=== PATIENT | female | born 1960 | race Caucasian/White ===

== ENCOUNTER 2016-11-18 10:57 | Inpatient (IN) | payer BC ==
[2016-11-18] MEDS ORDERED: Sucralfate TAB* 1 GM PO ONE (11:47)
[2016-11-18 12:06] LABS: Hematocrit 42 % (35-47); Hemoglobin 14.2 g/dl (12.0-16.0); Mean Corpuscular HGB Conc 34 g/dl (31-36); Mean Corpuscular Hemoglobin 35 pg (27-31); Mean Corpuscular Volume 102 fL (80-97); Mean Platelet Volume 9 um3 (7.4-10.4); Red Cell Distribution Width 14 % (10.5-15); White Blood Count 4.8 10^3/ul (3.5-10.8)
[2016-11-18 12:07] LABS: Add Diff/Slide Review? Slide Review Added; Comments Flag Yes
[2016-11-18 12:25] LABS: BUN/Creatinine Ratio 14.2 (8-20); C Reactive Protein 20.51 mg/L (< 5.00); Calcium 9.2 mg/dL (8.6-10.3); EGFR African American 56.4 (>60); EGFR Non-African American 43.9 (>60); Globulin 3.9 g/dL (2-4); Potassium 4.4 mmol/L (3.5-5.0); Total Bilirubin 2.1 mg/dL (0.2-1.0); Total Protein 6.9 g/dL (6.4-8.9)
--- NOTE | 2016-11-18 12:54 | RAD ---
INDICATION: Abdominal distention. COMPARISON: Comparison is made with a prior CT of the abdomen and pelvis from July 06, 2009. TECHNIQUE: A CT scan of the abdomen and pelvis was performed without intravenous or oral contrast. Contiguous axial sections were obtained from the lung bases through the symphysis pubis. Images were reconstructed in the coronal and sagittal planes. FINDINGS: The lung bases are clear. No pleural effusion is present. The posterior segment of the right hepatic lobe appears atrophic and the liver has a nodular contour consistent with cirrhosis. The spleen is enlarged measuring 15.8 x 15.8 x 8.3 cm in size and has increased slightly in size from the prior exam. No discrete focal abnormality is seen. The portal vein appears prominent. There are varices in the splenic hilum. These findings are suggestive of portal hypertension. The gallbladder is not well-defined although no calcified gallstones are seen. The pancreas appears to be within normal limits. The adrenal glands and kidneys are normal in size. No renal calculi or hydronephrosis is seen. The aorta is normal in caliber with mild calcific plaque present. No significant enlarged retroperitoneal lymph nodes are seen. The stomach, small and large bowel appear nondistended. The appendix is within normal limits. There is no evidence for diverticulitis or colitis. There is a moderate to large amount of free intraperitoneal fluid. No free intraperitoneal air is seen. No significant focal osseous abnormality is seen. IMPRESSION: 1. MODERATE TO LARGE AMOUNT OF ASCITES. 2. CIRRHOSIS, SPLENOMEGALY AND FINDINGS SUGGESTIVE OF PORTAL HYPERTENSION.
--- NOTE | 2016-11-18 13:58 | ED ---
Anthony Sun Alfonso, scribed for Ricky Burroughs MD on 11/18/16 at 1145 . Shortness of Breath - HPI Summary HPI Summary: This patient is a 56 year old F presenting to [facility] accompanied by female with a chief complaint of SOB since 3 weeks ago. The patient rates the pain 0/10 in severity. Symptoms aggravated by position (sitting up). Symptoms alleviated by nothing. Patient reports abdominal pain (burning and hard), nausea, and loss of appetite. Patient denies bowel symptoms. PMHx of liver cirrhosis. - History of Current Complaint Chief Complaint: EDRespiratoryDistress Time Seen by Provider: 11/18/16 11:29 Hx Obtained From: Patient Onset/Duration: Sudden Onset, Lasting Weeks - 3, Still Present Timing: Constant Current Severity: Moderate Aggrevating Factors: Movement - Position "sitting up" Alleviating Factors: Nothing Associated Signs & Symptoms: Negative - Allergy/Home Medications Allergies/Adverse Reactions: Allergies Allergy/AdvReac Type Severity Reaction Status Date / Time No Known Allergies Allergy Verified 03/07/14 10:19 PMH/Surg Hx/FS Hx/Imm Hx Cardiovascular History: Reports: Hx Hypertension Denies: Hx Pacemaker/ICD GI History: Reports: Other GI Disorders - liver cirrhosis. Sensory History: Denies: Hx Hearing Aid Opthamlomology History: Denies: Hx Legally Blind Psychiatric History: Denies: Hx Panic Disorder - Surgical History Surgery Procedure, Year, and Place: RT KNEE MENISCUS, CERVICAL DYSPLASIA SURGERYS,LIVER BX Infectious Disease History: Denies: Traveled Outside the [place] in Last 30 Days - Family History Known Family History: Positive: Cardiac Disease, Diabetes, Other - Cancer brain and breast. - Social History Alcohol Use: None Substance Use Type: Reports: None Hx Tobacco Use: Yes Smoking Status (MU): Former Smoker Length of Time of Smoking/Using Tobacco: < 1/2 ppd Review of Systems Positive: Shortness Of Breath Positive: Abdominal Pain, Nausea, Other - loss of appetite; negative bowel sx. All Other Systems Reviewed And Are Negative: Yes Physical Exam Triage Information Reviewed: Yes Vital Signs On Initial Exam: Initial Vitals Temp Pulse Resp BP Pulse Ox 98.7 F 95 24 152/74 95 11/18/16 11:07 11/18/16 11:07 11/18/16 11:07 11/18/16 11:07 11/18/16 11:07 Vital Signs Reviewed: Yes Appearance: Positive: Well-Appearing, No Pain Distress, Obese Skin: Positive: Warm, Skin Color Reflects Adequate Perfusion, Dry Head/Face: Positive: Normal Head/Face Inspection Eyes: Positive: Normal ENT: Positive: Normal ENT inspection Neck: Positive: Supple, Nontender Respiratory/Lung Sounds: Positive: Clear to Auscultation, Breath Sounds Present Cardiovascular: Positive: RRR Abdomen Description: Positive: Soft, Other: - Epigastrium tenderness Bowel Sounds: Positive: Present Musculoskeletal: Positive: Normal Neurological: Positive: Normal, Sensory/Motor Intact, Alert, Oriented to Person Place, Time Psychiatric: Positive: Affect/Mood Appropriate Diagnostics - Vital Signs Vital Signs Temp Pulse Resp BP Pulse Ox 11/18/16 11:07 98.7 F 95 24 152/74 95 - Laboratory Lab Results: Lab Results 11/18/16 11/18/16 11/18/16 Range/Units 11:52 11:52 11:52 WBC 4.8 (3.5-10.8) 10^3/ul RBC 4.10 (4.0-5.4) 10^6/ul Hgb 14.2 (12.0-16.0) g/dl Hct 42 (35-47) % MCV 102 H (80-97) fL MCH 35 H (27-31) pg MCHC 34 (31-36) g/dl RDW 14 (10.5-15) % Plt Count 73 L (150-450) 10^3/ul MPV 9 (7.4-10.4) um3 Neut % (Auto) 59.5 (38-83) % Lymph % (Auto) 18.4 L (25-47) % [place] % (Auto) 16.5 H (1-9) % Eos % (Auto) 4.5 (0-6) % Baso % (Auto) 1.1 (0-2) % Absolute Neuts (auto) 2.9 (1.5-7.7) 10^3/ul Absolute Lymphs (auto) 0.9 L (1.0-4.8) 10^3/ul Absolute Monos (auto) 0.8 (0-0.8) 10^3/ul Absolute Eos (auto) 0.2 (0-0.6) 10^3/ul Absolute Basos (auto) 0.1 (0-0.2) 10^3/ul Absolute Nucleated RBC 0 10^3/ul Nucleated RBC % 0.1 INR (Anticoag Therapy) (0.89-1.11) Sodium 133 (133-145) mmol/L Potassium 4.4 (3.5-5.0) mmol/L Chloride 105 (101-111) mmol/L Carbon Dioxide 23 (22-32) mmol/L Anion Gap 5 (2-11) mmol/L BUN 18 (6-24) mg/dL Creatinine 1.27 H (0.51-0.95) mg/dL Est GFR ( Amer) 56.4 (>60) Est GFR (Non-Af Amer) 43.9 (>60) BUN/Creatinine Ratio 14.2 (8-20) Glucose 133 H (70-100) mg/dL Lactic Acid (0.5-2.0) mmol/L Calcium 9.2 (8.6-10.3) mg/dL Total Bilirubin 2.10 H (0.2-1.0) mg/dL AST 35 (13-39) U/L ALT 19 (7-52) U/L Alkaline Phosphatase 134 H (34-104) U/L Ammonia 167 H (16-53) mol/L C-Reactive Protein 20.51 H (< 5.00) mg/L Total Protein 6.9 (6.4-8.9) g/dL Albumin 3.0 L (3.2-5.2) g/dL Globulin 3.9 (2-4) g/dL Albumin/Globulin Ratio 0.8 L (1-3) Lipase 62 (11.0-82.0) U/L 11/18/16 11/18/16 Range/Units 11:52 11:52 WBC (3.5-10.8) 10^3/ul RBC (4.0-5.4) 10^6/ul Hgb (12.0-16.0) g/dl Hct (35-47) % MCV (80-97) fL MCH (27-31) pg MCHC (31-36) g/dl RDW (10.5-15) % Plt Count (150-450) 10^3/ul MPV (7.4-10.4) um3 Neut % (Auto) (38-83) % Lymph % (Auto) (25-47) % [place] % (Auto) (1-9) % Eos % (Auto) (0-6) % Baso % (Auto) (0-2) % Absolute Neuts (auto) (1.5-7.7) 10^3/ul Absolute Lymphs (auto) (1.0-4.8) 10^3/ul Absolute Monos (auto) (0-0.8) 10^3/ul Absolute Eos (auto) (0-0.6) 10^3/ul Absolute Basos (auto) (0-0.2) 10^3/ul Absolute Nucleated RBC 10^3/ul Nucleated RBC % INR (Anticoag Therapy) 1.33 H (0.89-1.11) Sodium (133-145) mmol/L Potassium (3.5-5.0) mmol/L Chloride (101-111) mmol/L Carbon Dioxide (22-32) mmol/L Anion Gap (2-11) mmol/L BUN (6-24) mg/dL Creatinine (0.51-0.95) mg/dL Est GFR ( Amer) (>60) Est GFR (Non-Af Amer) (>60) BUN/Creatinine Ratio (8-20) Glucose (70-100) mg/dL Lactic Acid 2.0 (0.5-2.0) mmol/L Calcium (8.6-10.3) mg/dL Total Bilirubin (0.2-1.0) mg/dL AST (13-39) U/L ALT (7-52) U/L Alkaline Phosphatase (34-104) U/L Ammonia (16-53) mol/L C-Reactive Protein (< 5.00) mg/L Total Protein (6.4-8.9) g/dL Albumin (3.2-5.2) g/dL Globulin (2-4) g/dL Albumin/Globulin Ratio (1-3) Lipase (11.0-82.0) U/L Result Diagrams: 11/18/16 11:52 11/18/16 11:52 Lab Statement: Any lab studies that have been ordered have been reviewed, and results considered in the medical decision making process. - CT A/P CT Interpretation Completed By: Radiologist - 1. MODERATE TO LARGE AMOUNT OF ASCITES. 2. CIRRHOSIS, SPLENOMEGALY AND FINDINGS SUGGESTIVE OF PORTAL HYPERTENSION. ED physician has reviewed this radiology report and agrees. Course/Dx - Course Course Of Treatment: Ms. Cheng presented with massive ascites which ahs been giving her SOB and epigastric sukhwinder for the last 3 weeks. I doubt that she has SBP but it is possible. She is being admitted to the hospitalists for further W /U. - Diagnoses Provider Diagnoses: Ascites, Epigastric abdominal pain - Physician Notifications Discussed Care of Patient With: Skyla Davis Time Discussed With Above Provider: 12:42 Instructed by Provider To: Other - Consulted Dr. Davis (hospitalist) who agrees to admit. Discharge - Discharge Plan Condition: Stable Disposition: ADMITTED TO [facility] The documentation as recorded by the Anthony rodrigues Alfonso accurately reflects the service I personally performed and the decisions made by me, Ricky Burroughs MD.
[2016-11-18] MEDS ORDERED: Ondansetron INJ* 2 MG/ML VIAL IV PRN (14:14)
[2016-11-18 14:28] LABS: Urine Bacteria Absent (Absent); Urine Bilirubin Negative (Negative); Urine Glucose Negative (Negative); Urine Nitrite Negative (Negative)
[2016-11-18] MEDS: Lactulose* 15 ML UDC PO SCH ×2 (15:49→21:11)
--- NOTE | 2016-11-18 15:50 | HP ---
CC: Dr. Rodriguez; * HISTORY AND PHYSICAL: DATE OF ADMISSION: 11/18/16 PRIMARY CARE PROVIDER: Dr. Rodriguez from [place]. ATTENDING PHYSICIAN WHILE IN THE HOSPITAL: Skyla Patel MD * (report dictated by Erik Bajwa NP). CHIEF COMPLAINT: 1. Shortness of breath. 2. Abdominal discomfort and epigastric discomfort. HISTORY OF PRESENT ILLNESS: Mrs. Cheng is a 56-year-old female patient with a documented history of cirrhosis secondary to MARIA, history of thrombocytopenia, uterine cancer, and history of AUNDREA compliant with CPAP. She comes into the ER today stating that over the last 3 weeks, she has had progressive worsening abdominal distention. She says she feels like she is 9 months . She says she has been taking her diuretics. She has had issues with ascites in the past, although never required paracentesis she says. She denies having any fevers or chills. She says that it hurts. She is having epigastric discomfort right now and it really is worse when she tries to take a deep breath and also she is like it is hard to take a deep breath because it causes discomfort, particularly in her stomach. She says that she has not had any fevers or chills. There has been no vomiting or diarrhea. She says she just feels uncomfortable because she feels like she is carrying 3 babies around, that is what she said to me. She denied having any chest discomfort, no abdominal pain at rest. It just hurts with movement. She denies having any fevers, chills, or any vomiting. She came into the ER, was evaluated. There is concern because she had a significant amount of ascites and the fact that she was feeling short of breath particularly with exertion is what her main complaint is. Because of this, we were asked to evaluate for admission. PAST MEDICAL HISTORY: Significant for: 1. Cirrhosis. 2. MARIA. 3. Thrombocytopenia. 4. Uterine cancer. 5. AUNDREA complaint with CPAP. PAST SURGICAL HISTORY: She has had: 1. . 2. Adenoidectomy. 3. She has had polyp with the vocal cords removed. HOME MEDICATIONS: According to her recall include: 1. Prevacid 30 mg daily. 2. Lasix 20 mg p.o. b.i.d. 3. Aldactone 25 mg p.o. daily. ALLERGIES TO MEDICATIONS: Include no known drug allergies. FAMILY HISTORY: Mother had a history of heart disease. Father had a history of CHF. SOCIAL HISTORY: She is about half a pack a day smoker. She has been doing this since she was the age of 12, occasionally drinks alcohol. Surrogate decision maker is her partner, Connie. REVIEW OF SYSTEMS: There is no documented fever. She denied a significant weight change to me, but she said she has been unable to weigh herself because she gets too short of breath when she tries to walk to the scale. She denies having any abdominal discomfort. There was no nausea or vomiting. There was no dysuria, no frequency, no loss of consciousness. No seizure. No pruritus. No skin ulcerations. Review of 14 systems completed, all others negative. PHYSICAL EXAMINATION GENERAL: At this time, Mrs. Cheng is a 56-year-old female patient. She is morbidly obese. She is sitting in the ER stretcher. She does not appear to be in any acute respiratory distress. VITAL SIGNS: Reveals blood pressure 117/58, pulse 95, respirations 18, O2 sat 95% on room air, temperature 98.7. HEENT: Head is atraumatic and normocephalic. Eyes: EOMs are intact. Sclerae anicteric, not pale. Throat: Oral mucosa appears to be moist. No oropharyngeal erythema. NECK: Supple. LUNGS: Clear to auscultation bilaterally. No wheezes, rales, or rhonchi. HEART: Sounds S1, S2. Regular rate and rhythm. No murmurs, rubs, or gallops. ABDOMEN: On percussion was dull. There was no tenderness. Bowel sounds were present. She did have what appeared to be fluid wave, but no focal tenderness was noted. EXTREMITIES: Pulses were 2+ throughout. She is able to move all 4 extremities with 5/5 strength. NEUROLOGICAL: She is awake, alert, and oriented x3. No gross focal deficits. SKIN: Intact. LABORATORY DATA/DIAGNOSTIC STUDIES: Revealed WBC 4.8, RBC of 4.10, hemoglobin 14.2, hematocrit of 42, and platelet count of 73,000. INR 1.33. Sodium 133, potassium 4.4, chloride 105, bicarb 23, BUN 18, creatinine 1.27, her baseline creatinine is 0.8. Glucose 133, lactic 2, calcium 9.2, total bili 2.1. AST 35 , ALT 19, alk phos 134. Her ammonia was 167. Albumin was 3.0. She had an abdominopelvis CT scan obtained today, which showed, impression: [id number] amount of ascites, cirrhosis, splenomegaly, and findings suggestive of portal hypertension. Old medical records were reviewed. ASSESSMENT AND PLAN: Mrs. Cheng is a 56-year-old female patient coming into the ER today with complaints of shortness of breath particularly with exertion and abdominal discomfort. She will be admitted under observation status for: 1. Cirrhosis with ascites. At this point, I suspect this is probably why she is feeling dyspnea on exertion and why she is having difficulty with exertion. She has a significant amount of ascites. My plan is to set up a paracentesis, send this off for cultures and cell count. I do not think she is actively infected. If she spikes a fever, has worsening abdominal pain or gely a white count, then I will have a little threshold to put her on antibiotics, but I am going to hold at this point though, she is stable and we will continue to follow. I think once we do a paracentesis and drain some fluid off, she may feel significantly better and will continue to follow. I will go ahead and increase her Lasix to IV 40 b.i.d., obviously keeping a close eye on the renal function and we will also continue her spironolactone. 2. History of obstructive sleep apnea. We will put her on CPAP. 3. Nonalcoholic steatohepatitis. Follow with her primary roll setter. 4. Thrombocytopenia. We will monitor this. 5. DVT prophylaxis. Because of the thrombocytopenia, the proposed procedure and the fact that she does have a slightly elevated INR, I am just going to put her on SCDs. I am going to hold on heparin subcu. 6. Code status. Full code. 7. Fluids, electrolytes, and nutrition. She can have a heart healthy diet. 8. Elevated ammonia. She is not encephalopathic at this point, but I will put her on lactulose 15 mL p.o. b.i.d. and repeat the level in the morning. TIME SPENT: Time spent on the admission was approximately 60 minutes, greater than half the time spent [id number] with the patient obtaining my history and physical, the other half the time was spent going over the plan of care with the patient and implementing plan of care. I did discuss the plan of care with my attending, Dr. Patel, she is in agreement. ERIK BAJWA, RAFAEL [id number]/CPS #: [id number] MARIE
[2016-11-18] MEDS: Furosemide IV* 10 MG/ML VIAL (40 MG) IV SLOW PU SCH (17:05)
[2016-11-18] MEDS ORDERED: Acetaminophen TAB* 325 MG PO PRN (21:24)
[2016-11-18] MEDS ORDERED: oxyCODONE TAB* 5 MG TAB PO PRN (21:24)
[2016-11-19 05:28] LABS: Hematocrit 38 % (35-47); Hemoglobin 12.8 g/dl (12.0-16.0); Mean Corpuscular HGB Conc 34 g/dl (31-36); Mean Corpuscular Hemoglobin 35 pg (27-31); Mean Corpuscular Volume 102 fL (80-97); Mean Platelet Volume 8 um3 (7.4-10.4); Red Blood Count 3.66 10^6/ul (4.0-5.4); Red Cell Distribution Width 14 % (10.5-15); White Blood Count 3.7 10^3/ul (3.5-10.8)
[2016-11-19 05:31] LABS: Add Diff/Slide Review? Slide Review Added; Comments Flag Yes
[2016-11-19] MEDS: Omeprazole CAP* 20 MG PO SCH (06:02)
[2016-11-19 06:03] LABS: Albumin 2.5 g/dL (3.2-5.2); BUN/Creatinine Ratio 14.1 (8-20); Calcium 8.8 mg/dL (8.6-10.3); EGFR African American 55.9 (>60); EGFR Non-African American 43.5 (>60); Globulin 3.3 g/dL (2-4); Potassium 4.1 mmol/L (3.5-5.0); Total Bilirubin 3.3 mg/dL (0.2-1.0); Total Protein 5.8 g/dL (6.4-8.9)
[2016-11-19 08:29] LABS: Direct Bilirubin 0.9 mg/dL (0.03-0.18); Indirect Bilirubin 2.4 mg/dL (0.3-1.0)
[2016-11-19] MEDS ORDERED: Furosemide IV* 10 MG/ML VIAL (40 MG) IV SCH (09:00)
[2016-11-19] MEDS ORDERED: Lidocaine 1% INJ* 10 MG/ML 30 ML SDV ONE (10:12)
[2016-11-19] MEDS: Furosemide IV* 10 MG/ML VIAL (40 MG) IV SLOW PU SCH ×2 (11:44→20:15)
[2016-11-19] MEDS: Lactulose* 15 ML UDC PO SCH ×2 (11:44→20:03)
[2016-11-19] MEDS: Spironolactone TAB* 25 MG PO SCH (11:44)
--- NOTE | 2016-11-19 12:40 | CONS ---
CC: Dr. Rodriguez; [facility]; Dr. Tiffanie Anderson * SURGICAL CONSULTATION AND PROCEDURE NOTE: DATE OF CONSULT/PROCEDURE: 11/19/16 My service was contacted by the hospitalist service to evaluate Ms. Cheng, a 56- year-old female known to me from previous visits for evaluation of possible paracentesis. Patient is morbidly obese and I have seen her in our bariatric offices. She has got a history of cirrhosis and MARIA as well as obstructive sleep apnea and super morbid obesity. Patient presented to the hospital yesterday with shortness of breath and some abdominal discomfort. Workup in the emergency room included labs and a CT scan. A CAT scan showed large abdominal ascites and the patient was admitted for respiratory therapy and for surgical evaluation. Patient states that she is uncomfortable if she moves around; as long as she stays still she is okay. Some shortness of breath, difficulty getting comfortable. She does suffer with chronic pain. Past medical history and past surgical history reviewed as well as medications. REVIEW OF SYSTEMS: No fevers, no chills. Hospitalization as described above at this time. Shortness of breath as described above. Abdominal discomfort, but no change in bowel habits. Patient feels distended and has never felt this way before. She follows with Dr. Tiffanie Anderson regarding her MARIA. PHYSICAL EXAMINATION: She is afebrile. SBP in the 80s to 100s with MAP in the 60s, O2 sat 91% on room air, respirations 16. Alert and oriented x3 in minimal distress, not using accessory muscles. Lungs: Clear, but somewhat shallow breathing. Abdomen: Obese, distended, minimally tender on deep palpation, atympany. Extremities with some edema. LABORATORY DATA: Labs reviewed, which include a platelet count of 54, chemistry panel with a total bilirubin of 3.3. CT scan reviewed. IMPRESSION: A 56-year-old morbidly obese patient with a MELD score of 16 and nonalcoholic steatohepatitis, now with symptomatic large volume ascites. PLAN: Paracentesis with fluid sent for culture and cytology. PROCEDURE: After obtaining informed consent from the patient and going over the risks, benefits and alternatives as well as possible complications, patient agreed and she was marked. A time-out was performed. Ultrasound probe placed over the right upper quadrant and target incision site made. Due to the patient's body habitus, we did not tunnel this catheter given the fact that she had a 5-cm abdominal wall when measured utilizing CT scanning. The area was injected with lidocaine and a 8-Bengali catheter inserted. Approximately 5 L were taken off. This was cloudy, non-foul smelling yellowish fluid. A portion was sent for cytology and microbiology. When the fluid stopped draining after repositioning of the patient, we took the catheter out and placed a dressing over the site. The patient tolerated the procedure well. Followup cytology and microbiology. Hepatology consultation. [id number]/[facility] #: [id number] MARIE
--- NOTE | 2016-11-19 15:27 | RAD ---
HISTORY: Shortness of breath COMPARISONS: CT dated March 28, 2015 VIEWS: 1: frontal portable view of the chest at 3:10 PM FINDINGS: LINES AND TUBES: None. CARDIOMEDIASTINAL SILHOUETTE: The cardiomediastinal silhouette is normal for portable technique. PLEURA: The costophrenic angles are sharp. No pleural abnormalities are noted. LUNG PARENCHYMA: There is mild diffuse reticular pattern of opacification. ABDOMEN: The upper abdomen is clear. There is no subphrenic gas. BONES AND SOFT TISSUES: No bone or soft tissue abnormalities are noted. IMPRESSION: MILD DIFFUSE INTERSTITIAL OPACIFICATION. THE DIFFERENTIAL INCLUDES MILD PULMONARY INTERSTITIAL EDEMA
[2016-11-19 15:30] LABS: Body Fluid WBC 388 /mcL
[2016-11-19 15:44] LABS: Body Fluid Appearance Cloudy; Body Fluid Total Cells Counted 100
--- NOTE | 2016-11-19 19:15 | PN ---
Subjective Date of Service: 11/19/16 Interval History: Patient had a paracentesis with drainage of 5 liters of fluid. Patient states that this moderately improved her SOB and abdominal pain, but it is still present. Patient denies any other new complaints or pains. Patient asymptomatically hypotensive before paracentesis, so lasix and spironolactone were held for 3 hours and then given when normotensive. Family History: Unchanged from Admission Social History: Unchanged from Admission Past Medical History: Unchanged from Admission Objective Active Medications: Acetaminophen (Tylenol Tab*) 650 mg PO Q8H PRN PRN Reason: PAIN Furosemide (Lasix Iv*) 40 mg IV SLOW PU 0800,1700 FOR[facility] Last Admin: 11/19/16 11:44 Dose: 40 mg Lactulose (Lactulose*) 15 ml PO BID [facility] Last Admin: 11/19/16 11:44 Dose: 15 ml Omeprazole (Prilosec Cap*) 20 mg PO 0600 [facility] Last Admin: 11/19/16 06:02 Dose: 20 mg Ondansetron HCl (Zofran Inj*) 4 mg IV Q6H PRN PRN Reason: NAUSEA Oxycodone HCl (Roxycodone Tab*) 5 mg PO Q8H PRN PRN Reason: PAIN Last Admin: 11/18/16 22:16 Dose: 5 mg Spironolactone (Aldactone Tab*) 25 mg PO DAILY [facility] Last Admin: 11/19/16 11:44 Dose: 25 mg Vital Signs 11/18/16 11/18/16 11/18/16 20:00 20:27 22:00 Temperature 98.5 F 98.6 F Pulse Rate 84 87 Respiratory 18 16 18 Rate Blood Pressure 108/76 102/65 (mmHg) O2 Sat by Pulse 96 95 Oximetry 11/18/16 11/18/16 11/19/16 22:16 22:45 00:00 Temperature 98.6 F Pulse Rate 87 Respiratory 18 Rate Blood Pressure 102/65 (mmHg) O2 Sat by Pulse 95 95 Oximetry 11/19/16 11/19/16 11/19/16 02:00 03:32 04:16 Temperature 98 F 98.0 F Pulse Rate 85 85 Respiratory 20 20 18 Rate Blood Pressure 89/55 89/55 (mmHg) O2 Sat by Pulse 93 93 Oximetry 11/19/16 11/19/16 11/19/16 06:00 06:48 08:00 Temperature 97.9 F 97.9 F Pulse Rate 84 84 Respiratory 16 16 Rate Blood Pressure 92/57 92/57 (mmHg) O2 Sat by Pulse 91 91 96 Oximetry 11/19/16 11/19/16 11:41 15:21 Temperature 98.0 F 98.0 F Pulse Rate 83 83 Respiratory 17 24 Rate Blood Pressure 111/70 119/57 (mmHg) O2 Sat by Pulse 96 95 Oximetry Oxygen Devices in Use Now: None Appearance: Patient is a 56yo morbidly obese female who appears stated age sitting in hospital bed in NAD. Eyes: No Scleral Icterus, PERRLA Ears/Nose/Mouth/Throat: NL Teeth, Lips, Gums, Clear Oropharnyx, Mucous Membranes Moist Neck: NL Appearance and Movements; NL JVP, Trachea Midline Respiratory: Symmetrical Chest Expansion and Respiratory Effort, Clear to Auscultation Cardiovascular: NL Sounds; No Murmurs; No JVD, RRR, - - 1+ edema in bilateral lower extremities. Abdominal: - - Abdomen tensely distended and tender to palpation worst in epigastric area without involuntary guarding. BS present and normoactive in all 4 quadrants. Lymphatic: No Cervical Adenopathy Skin: No Rash or Ulcers Neurological: Alert and Oriented x 3, NL Sensation, NL Muscle Strength and Tone Nutrition: Taking PO's Result Diagrams: 11/19/16 05:08 11/19/16 05:04 Additional Lab and Data: Lab Results 11/18/16 11/18/16 11/18/16 Range/Units 11:52 11:52 11:52 WBC 4.8 (3.5-10.8) 10^3/ul RBC 4.10 (4.0-5.4) 10^6/ul Hgb 14.2 (12.0-16.0) g/dl Hct 42 (35-47) % MCV 102 H (80-97) fL MCH 35 H (27-31) pg MCHC 34 (31-36) g/dl RDW 14 (10.5-15) % Plt Count 73 L (150-450) 10^3/ul MPV 9 (7.4-10.4) um3 Neut % (Auto) 59.5 (38-83) % Lymph % (Auto) 18.4 L (25-47) % Am[place] % (Auto) 16.5 H (1-9) % Eos % (Auto) 4.5 (0-6) % Baso % (Auto) 1.1 (0-2) % Absolute Neuts (auto) 2.9 (1.5-7.7) 10^3/ul Absolute Lymphs (auto) 0.9 L (1.0-4.8) 10^3/ul Absolute Monos (auto) 0.8 (0-0.8) 10^3/ul Absolute Eos (auto) 0.2 (0-0.6) 10^3/ul Absolute Basos (auto) 0.1 (0-0.2) 10^3/ul Absolute Nucleated RBC 0 10^3/ul Nucleated RBC % 0.1 INR (Anticoag Therapy) (0.89-1.11) Sodium 133 (133-145) mmol/L Potassium 4.4 (3.5-5.0) mmol/L Chloride 105 (101-111) mmol/L Carbon Dioxide 23 (22-32) mmol/L Anion Gap 5 (2-11) mmol/L BUN 18 (6-24) mg/dL Creatinine 1.27 H (0.51-0.95) mg/dL Est GFR ( Amer) 56.4 (>60) Est GFR (Non-Af Amer) 43.9 (>60) BUN/Creatinine Ratio 14.2 (8-20) Glucose 133 H (70-100) mg/dL Lactic Acid (0.5-2.0) mmol/L Calcium 9.2 (8.6-10.3) mg/dL Total Bilirubin 2.10 H (0.2-1.0) mg/dL AST 35 (13-39) U/L ALT 19 (7-52) U/L Alkaline Phosphatase 134 H (34-104) U/L Ammonia 167 H (16-53) mol/L C-Reactive Protein 20.51 H (< 5.00) mg/L Total Protein 6.9 (6.4-8.9) g/dL Albumin 3.0 L (3.2-5.2) g/dL Globulin 3.9 (2-4) g/dL Albumin/Globulin Ratio 0.8 L (1-3) Lipase 62 (11.0-82.0) U/L 11/18/16 11/18/16 Range/Units 11:52 11:52 WBC (3.5-10.8) 10^3/ul RBC (4.0-5.4) 10^6/ul Hgb (12.0-16.0) g/dl Hct (35-47) % MCV (80-97) fL MCH (27-31) pg MCHC (31-36) g/dl RDW (10.5-15) % Plt Count (150-450) 10^3/ul MPV (7.4-10.4) um3 Neut % (Auto) (38-83) % Lymph % (Auto) (25-47) % Amite % (Auto) (1-9) % Eos % (Auto) (0-6) % Baso % (Auto) (0-2) % Absolute Neuts (auto) (1.5-7.7) 10^3/ul Absolute Lymphs (auto) (1.0-4.8) 10^3/ul Absolute Monos (auto) (0-0.8) 10^3/ul Absolute Eos (auto) (0-0.6) 10^3/ul Absolute Basos (auto) (0-0.2) 10^3/ul Absolute Nucleated RBC 10^3/ul Nucleated RBC % INR (Anticoag Therapy) 1.33 H (0.89-1.11) Sodium (133-145) mmol/L Potassium (3.5-5.0) mmol/L Chloride (101-111) mmol/L Carbon Dioxide (22-32) mmol/L Anion Gap (2-11) mmol/L BUN (6-24) mg/dL Creatinine (0.51-0.95) mg/dL Est GFR ( Amer) (>60) Est GFR (Non-Af Amer) (>60) BUN/Creatinine Ratio (8-20) Glucose (70-100) mg/dL Lactic Acid 2.0 (0.5-2.0) mmol/L Calcium (8.6-10.3) mg/dL Total Bilirubin (0.2-1.0) mg/dL AST (13-39) U/L ALT (7-52) U/L Alkaline Phosphatase (34-104) U/L Ammonia (16-53) mol/L C-Reactive Protein (< 5.00) mg/L Total Protein (6.4-8.9) g/dL Albumin (3.2-5.2) g/dL Globulin (2-4) g/dL Albumin/Globulin Ratio (1-3) Lipase (11.0-82.0) U/L 11/18/16 11/18/16 11/18/16 11:52 11:52 11:52 WBC 4.8 RBC 4.10 Hgb 14.2 Hct 42 MCV 102 H MCH 35 H MCHC 34 RDW 14 Plt Count 73 L MPV 9 Neut % (Auto) 59.5 Lymph % (Auto) 18.4 L Amite % (Auto) 16.5 H Eos % (Auto) 4.5 Baso % (Auto) 1.1 Absolute Neuts (auto) 2.9 Absolute Lymphs (auto) 0.9 L Absolute Monos (auto) 0.8 Absolute Eos (auto) 0.2 Absolute Basos (auto) 0.1 Absolute Nucleated RBC 0 Nucleated RBC % 0.1 INR (Anticoag Therapy) Sodium 133 Potassium 4.4 Chloride 105 Carbon Dioxide 23 Anion Gap 5 BUN 18 Creatinine 1.27 H Est GFR ( Amer) 56.4 Est GFR (Non-Af Amer) 43.9 BUN/Creatinine Ratio 14.2 Glucose 133 H Lactic Acid Calcium 9.2 Total Bilirubin 2.10 H Direct Bilirubin Indirect Bilirubin AST 35 ALT 19 Alkaline Phosphatase 134 H Ammonia 167 H C-Reactive Protein 20.51 H Total Protein 6.9 Albumin 3.0 L Globulin 3.9 Albumin/Globulin Ratio 0.8 L Lipase 62 Urine Color Urine Appearance Urine pH Ur Specific [place] Urine Protein Urine Ketones Urine Blood Urine Nitrate Urine Bilirubin Urine Urobilinogen Ur Leukocyte Esterase Urine WBC (Auto) Urine RBC (Auto) Ur Squamous Epith Cells Urine Bacteria Urine Glucose Urine Ascorbic Acid Fluid Source Fluid Volume Fluid Color Fluid Appearance Fluid WBC Fluid RBC Fluid Tot Cell Count Fluid Neutrophils Fluid Lymphocytes Fluid Monocytes Fluid Cell Count Rvw By Fluid Comment 11/18/16 11/18/16 11/18/16 11:52 11:52 13:05 WBC RBC Hgb Hct MCV MCH MCHC RDW Plt Count MPV Neut % (Auto) Lymph % (Auto) Amite % (Auto) Eos % (Auto) Baso % (Auto) Absolute Neuts (auto) Absolute Lymphs (auto) Absolute Monos (auto) Absolute Eos (auto) Absolute Basos (auto) Absolute Nucleated RBC Nucleated RBC % INR (Anticoag Therapy) 1.33 H Sodium Potassium Chloride Carbon Dioxide Anion Gap BUN Creatinine Est GFR ( Amer) Est GFR (Non-Af Amer) BUN/Creatinine Ratio Glucose Lactic Acid 2.0 Calcium Total Bilirubin Direct Bilirubin Indirect Bilirubin AST ALT Alkaline Phosphatase Ammonia C-Reactive Protein Total Protein Albumin Globulin Albumin/Globulin Ratio Lipase Urine Color Radha Urine Appearance Clear Urine pH 6.0 Ur Specific [place] 1.029 Urine Protein Negative Urine Ketones Trace H Urine Blood Negative Urine Nitrate Negative Urine Bilirubin Negative Urine Urobilinogen Negative Ur Leukocyte Esterase Trace H Urine WBC (Auto) Trace(0-5/hpf) Urine RBC (Auto) Absent Ur Squamous Epith Cells Present H Urine Bacteria Absent Urine Glucose Negative Urine Ascorbic Acid * H Fluid Source Fluid Volume Fluid Color Fluid Appearance Fluid WBC Fluid RBC Fluid Tot Cell Count Fluid Neutrophils Fluid Lymphocytes Fluid Monocytes Fluid Cell Count Rvw By Fluid Comment 11/19/16 11/19/16 11/19/16 05:04 05:08 05:08 WBC 3.7 RBC 3.66 L Hgb 12.8 Hct 38 MCV 102 H MCH 35 H MCHC 34 RDW 14 Plt Count 54 L MPV 8 Neut % (Auto) 52.9 Lymph % (Auto) 21.6 L Amite % (Auto) 19.0 H Eos % (Auto) 5.8 Baso % (Auto) 0.7 Absolute Neuts (auto) 1.9 Absolute Lymphs (auto) 0.8 L Absolute Monos (auto) 0.7 Absolute Eos (auto) 0.2 Absolute Basos (auto) 0 Absolute Nucleated RBC 0.01 Nucleated RBC % 0.2 INR (Anticoag Therapy) Sodium 136 Potassium 4.1 Chloride 107 Carbon Dioxide 24 Anion Gap 5 BUN 18 Creatinine 1.28 H Est GFR ( Amer) 55.9 Est GFR (Non-Af Amer) 43.5 BUN/Creatinine Ratio 14.1 Glucose 104 H Lactic Acid Calcium 8.8 Total Bilirubin 3.30 H Direct Bilirubin 0.90 H Indirect Bilirubin 2.4 H AST 28 ALT 15 Alkaline Phosphatase 88 Ammonia 80 H C-Reactive Protein Total Protein 5.8 L Albumin 2.5 L Globulin 3.3 Albumin/Globulin Ratio 0.8 L Lipase Urine Color Urine Appearance Urine pH Ur Specific [place] Urine Protein Urine Ketones Urine Blood Urine Nitrate Urine Bilirubin Urine Urobilinogen Ur Leukocyte Esterase Urine WBC (Auto) Urine RBC (Auto) Ur Squamous Epith Cells Urine Bacteria Urine Glucose Urine Ascorbic Acid Fluid Source Fluid Volume Fluid Color Fluid Appearance Fluid WBC Fluid RBC Fluid Tot Cell Count Fluid Neutrophils Fluid Lymphocytes Fluid Monocytes Fluid Cell Count Rvw By Fluid Comment 11/19/16 10:23 WBC RBC Hgb Hct MCV MCH MCHC RDW Plt Count MPV Neut % (Auto) Lymph % (Auto) Amite % (Auto) Eos % (Auto) Baso % (Auto) Absolute Neuts (auto) Absolute Lymphs (auto) Absolute Monos (auto) Absolute Eos (auto) Absolute Basos (auto) Absolute Nucleated RBC Nucleated RBC % INR (Anticoag Therapy) Sodium Potassium Chloride Carbon Dioxide Anion Gap BUN Creatinine Est GFR ( Amer) Est GFR (Non-Af Amer) BUN/Creatinine Ratio Glucose Lactic Acid Calcium Total Bilirubin Direct Bilirubin Indirect Bilirubin AST ALT Alkaline Phosphatase Ammonia C-Reactive Protein Total Protein Albumin Globulin Albumin/Globulin Ratio Lipase Urine Color Urine Appearance Urine pH Ur Specific [place] Urine Protein Urine Ketones Urine Blood Urine Nitrate Urine Bilirubin Urine Urobilinogen Ur Leukocyte Esterase Urine WBC (Auto) Urine RBC (Auto) Ur Squamous Epith Cells Urine Bacteria Urine Glucose Urine Ascorbic Acid Fluid Source Peritonial fluid Fluid Volume 11 Fluid Color Yellow Fluid Appearance Cloudy Fluid WBC 388 Fluid RBC 2325 Fluid Tot Cell Count 100 Fluid Neutrophils 16 Fluid Lymphocytes 33 Fluid Monocytes 51 Fluid Cell Count Rvw By Fluid Comment Microbiology and Other Data: Microbiology 11/19/16 10:17 Gram Stain - Final Body Fluid - Peritoneal 11/18/16 13:05 Urine Culture - Final Urine Assess/Plan/Problems-Billing Assessment: Patient is a 56yo female with a PMH significant for MARIA with cirrhosis, ascites , AUNDREA and thrombocytopenia who presents with SOB and abdominal pain and tense ascites. Moderate improvement after paracentesis, but persisting SOB. - Patient Problems (1) Liver cirrhosis secondary to MARIA (nonalcoholic steatohepatitis) Current Visit: Yes Status: Acute Code(s): K75.81 - NONALCOHOLIC STEATOHEPATITIS (MARIA); K74.60 - UNSPECIFIED CIRRHOSIS OF LIVER SNOMED Code(s) : 58442704 Comment: Patient managed by Dr Monica azul. Lab work stable from previous admissions. This increase in symptoms may indicate disease progression or dietary indiscretion. Will further investigate diet and continue Laxix, spironolactone, and lactulose. (2) Ascites Current Visit: Yes Status: Acute Code(s): R18.8 - OTHER ASCITES SNOMED Code(s): 905404395 Comment: Decreased after 5L removed with paracentesis. Patient still symptomatic. Continue lasix and spironolactone. (3) AUNDREA on CPAP Current Visit: Yes Status: Acute Code(s): G47.33 - OBSTRUCTIVE SLEEP APNEA ( ADULT) (PEDIATRIC); Z99.89 - DEPENDENCE ON OTHER ENABLING MACHINES AND DEVICES SNOMED Code(s): 64319562 Comment: Continue CPAP with home settings. (4) Thrombocytopenia Current Visit: Yes Status: Acute Code(s): D69.6 - THROMBOCYTOPENIA, UNSPECIFIED SNOMED Code(s): 695300598 Comment: Platelet count 54K, will defer heparin treatment at this time. Will continue to monitor. (5) DVT prophylaxis Current Visit: Yes Status: Acute Code(s): PDU4871 - SNOMED Code(s): 252469765 Comment: SCDs on while in bed. Heparin contraindicated due to low platelets. Status and Disposition: Patient is admitted inpatient and will be discharged when medically stable.
[2016-11-20 06:04] LABS: Hematocrit 37 % (35-47); Hemoglobin 12.7 g/dl (12.0-16.0); Mean Corpuscular HGB Conc 34 g/dl (31-36); Mean Corpuscular Hemoglobin 35 pg (27-31); Mean Corpuscular Volume 103 fL (80-97); Mean Platelet Volume 8 um3 (7.4-10.4); Red Blood Count 3.63 10^6/ul (4.0-5.4); Red Cell Distribution Width 14 % (10.5-15); White Blood Count 3.7 10^3/ul (3.5-10.8)
[2016-11-20 06:12] LABS: Comments Flag Yes
[2016-11-20 06:14] LABS: Add Diff/Slide Review? Slide Review Added
[2016-11-20] MEDS: Omeprazole CAP* 20 MG PO SCH (06:15)
[2016-11-20 06:27] LABS: Albumin 2.4 g/dL (3.2-5.2); BUN/Creatinine Ratio 14.9 (8-20); Calcium 8.6 mg/dL (8.6-10.3); EGFR African American 63.9 (>60); EGFR Non-African American 49.7 (>60); Globulin 3.1 g/dL (2-4); Total Bilirubin 3.5 mg/dL (0.2-1.0); Total Protein 5.5 g/dL (6.4-8.9)
[2016-11-20] MEDS: Lactulose* 15 ML UDC PO SCH (10:05)
[2016-11-20] MEDS: Spironolactone TAB* 25 MG PO SCH (10:06)
[2016-11-20] MEDS: Furosemide IV* 10 MG/ML VIAL (40 MG) IV SLOW PU SCH (10:06)
[2016-11-20] MEDS ORDERED: Spironolactone TAB* 25 MG PO ONE (11:50)
[2016-11-20 14:32] LABS: Glucose, BF 123 mg/dL
[2016-11-20 15:51] VITALS: BP 114/68
--- NOTE | 2016-11-21 08:36 | DS ---
CC Dr. Rodriguez * DISCHARGE SUMMARY: DATE OF ADMISSION: 11/18/16 DATE OF DISCHARGE: 11/20/16 PRIMARY CARE PHYSICIAN: Dr. Rodriguez. SUPERVISING PHYSICIAN: Pavel Mackenzie MD * (DICTATED BY RICKI BENITES) PRIMARY DISCHARGE DIAGNOSIS: Tense ascites. SECONDARY DISCHARGE DIAGNOSES: 1. Cirrhosis. 2. Nonalcoholic steatohepatitis. 3. Thrombocytopenia. DISCHARGE MEDICATIONS: 1. Spironolactone 100 mg p.o. daily. 2. Furosemide 20 mg p.o. b.i.d. 3. Lansoprazole 30 mg p.o. daily. DISCONTINUED MEDICATION: 1. Spironolactone 25 mg p.o. daily. IMAGING WHILE IN THE HOSPITAL: Abdomen and pelvis CT on 11/18/16 read as moderate- to-large amount of ascites, cirrhosis, splenomegaly, and findings suggestive of portal hypertension. Chest x-ray on 11/19/16, read as mild diffuse interstitial opacification differential includes mild pulmonary interstitial edema. Electrocardiogram from 11/20/16 shows normal sinus rhythm, normal axis. No ST changes or other pertinent abnormalities, and this is consistent with previous study. HOSPITAL COURSE: For more details please see admission history and physical from 11/18/16, by Erik Bajwa NP. In brief, the patient is a 56-year-old female with past medical history significant for cirrhosis with MARIA and thrombocytopenia who presented with shortness of breath, abdominal pain and distention, increasing over three weeks. The patient was admitted to the hospital for planned paracentesis. Paracentesis was performed on 11/19/[address] Kun Jackman. Please see his consultation report 11/19/16 for more details. The patient felt significantly better after the 5 L of fluid was drained off, but the shortness of breath persisted. Ascitic fluid was sent out for analysis , which revealed no signs of spontaneous bacterial peritonitis and were generally within normal limits. Chest x- ray was ordered to investigate continued shortness of breath which showed mild interstitial edema. BNP was ordered and EKG were ordered which were both normal. The patient had no adventitious lung sounds on exam. The patient continued to feel better overnight from 11/19/16 to 11/20/16. Vital signs were within normal limits and she states she felt well enough to go home. The patient was then discharged to home with plans to follow up with her PCP. The patient also plans to more stringently limit the sodium in her diet and this was discussed at length with her before her discharge. PHYSICAL EXAMINATION ON DAY OF DISCHARGE: General: The patient is a 56-year- old morbidly obese female resting comfortably in her hospital bed. Vital Signs : Temperature 98.1, pulse rate 86, respiratory rate 16, oxygen saturation 95% on room air, blood pressure 103/63. HEENT: Head normocephalic and atraumatic. Sclerae anicteric. No conjunctival injection. Pharynx non-erythematous with no exudates. Mucosa pink and moist. Neck: Supple, nontender. No lymphadenopathy. No carotid bruit auscultated. Cardiac: Regular rate and rhythm. No clicks, murmurs, gallops or rubs. Pulses 2+ bilaterally in the radial, posterior tibialis and dorsalis pedis areas. Respiratory: Clear to auscultation bilaterally. No wheezes, rales, or rhonchi. Good air exchange. Abdomen: Abdomen is distended. There is a bandage from previous paracentesis present on the right side. Abdomen is dull to percussion throughout. There is tenderness to palpation, light and deep palpation over the left and right upper quadrants, no other tenderness. Body habitus limits examination, but there is evidence of hepatomegaly of approximately 4 cm below the costal margin. The spleen was not attempted to be palpated at this time. Genitourinary: No suprapubic tenderness or CVA tenderness listed. Skin: Clean, dry and intact. Neurological: Cranial nerves II through XII are intact. Alert and oriented x3. DISCHARGE PLAN: The patient is being discharged to home. The patient should follow up with her primary care doctor within one week to recheck CBC and BMP and consider echocardiogram though I believe this would be a low yield assessment. The patient should continue to follow with her processes chemical design engineer and the patient should limit the sodium in her diet at home. The patient should continue wearing her CPAP while at home. The patient should consider smoking cessation for her health. TIME SPENT: Approximately 60 minutes was spent on this discharge, 30 minutes of which was spent [id number] with the patient obtaining history and physical and discussing the course of her illness. RICKI BENITES [id number]/[facility] #: [id number] MARIE
[2016-11-21] MEDS ORDERED: Furosemide IV* 10 MG/ML VIAL (40 MG) IV SLOW PU SCH (09:00)
== END 2016-11-20 15:45 | disposition home or self-care (01) ==
LOC: ED 10:57 → MEDTELE 12:48 → MED 14:25 → OBSVTOIN 11-19 15:00
PROVIDERS: ADMIT Internal Medicine; ATTEND Surgery
PROC: 0W9G3ZZ Drainage of Peritoneal Cavity, Percutaneous Approach (ICD-10-PCS; principal; 2016-11-19 11:00)
DX: K74.60 Unspecified cirrhosis of liver (principal); R18.8 Other ascites; K76.6 Portal hypertension; D69.6 Thrombocytopenia, unspecified; Z68.43 Body mass index [BMI] 50.0-59.9, adult; K75.81 Nonalcoholic steatohepatitis (NASH); G47.33 Obstructive sleep apnea (adult) (pediatric); G89.29 Other chronic pain; R16.1 Splenomegaly, not elsewhere classified; F17.210 Nicotine dependence, cigarettes, uncomplicated; E66.01 Morbid (severe) obesity due to excess calories; I10 Essential (primary) hypertension; Z82.49 Family history of ischemic heart disease and other diseases of the circulatory system; Z83.3 Family history of diabetes mellitus; Z80.3 Family history of malignant neoplasm of breast; Z85.42 Personal history of malignant neoplasm of other parts of uterus
CPT/HCPCS: 36415; 71010; 74176; 80048; 80053; 80076; 81003; 81015; 82042; 82140; 82945; 83605; 83690; 83880; 85025; 85610; 86140; 87040; 87086; 87205; 88112; 89051; 93005; A9270-GY; G0378; J1940; J2001